=== PATIENT | female | born 1990 | race Caucasian/White ===

== ENCOUNTER 2023-09-23 16:24 | Emergency (ER) | payer MEDICAID, SELFPAY ==
[2023-09-23 16:25] VITALS: BP 123/78; PULSE 92; RESP 18; TEMP 36.7; O2SAT 98; BMI 36.8
--- NOTE | 2023-09-23 17:06 | HMH.EDGENADL ---
Discharge Plan Disposition Patient Disposition: Home, Self-Care Condition: Good Prescriptions Prescriptions: New doxycycline hyclate 100 mg capsule 100 mg PO BID 10 Days Qty: 20 0RF Referrals Follow up/Referrals: Kelly Warner APRN [Primary Care Provider] - See instructions Activity Restrictions/Add. Instructions Additional Instructions/Restrictions: Leave packing in place for 24 hours. Change packing once a day. May wash with soap and water. Follow-up with PCP for reevaluation or may return to ER. Take antibiotics as prescribed. Clinical Impressions Clinical Impression: Abscess of skin or subcutaneous tissue Qualifiers: Site of cutaneous abscess: extremity Site of cutaneous abscess of extremity: lower extremity Laterality: left Qualified Code(s): L02.416 - Cutaneous abscess of left lower limb Instructions Patient Instructions: DI for Skin Abscess Discharge ED Provider: Pooja Jo General Adult HPI General Chief complaint: Skin/Abscess/Foreign Body Stated complaint: spot on LT thigh, LT knee& thigh pain Time Seen by Provider: 09/23/23 17:06 Mode of Arrival: Ambulatory Source of Information: Patient Limitations: No Limitations Description of Symptoms (Recalled from ER Triage Doc. by RN): Patient reports abscess on left upper thigh redness and open area noted reports she noticed it 2 days ado. Patient states she has been having pain in left knee and hip for 1 day. Worse with ambulation. History of Present Illness HPI narrative: Patient reports an area on the proximal medial left inner thigh that has gotten red hot and swollen over the last 2 days. Patient denies trauma or picking. Patient knows fever chills hemoptysis hematochezia melena nausea vomit diarrhea. Related Data Previous Rx's Medication Instructions Recorded doxycycline hyclate 100 mg capsule 100 mg PO BID 10 days #20 caps 09/23/23 Allergies Allergy/AdvReac Type Severity Reaction Status Date / Time No Known Allergies Allergy Verified 09/23/23 18:08 [facility] Disclaimer: The information contained in this section may have been updated after the patient was seen, as this information can be updated by other users. Social History Smoking Status: Current every day smoker alcohol intake: current current occupational status: employed Travel in the last 8 weeks: None ROS Obtained: Yes Systems reviewed as appropriate & no additional complaints except as documented Physical Exam General General appearance: alert and in no apparent distress Respiratory Respiratory exam: Present normal lung sounds bilaterally Cardiovascular Cardiovascular exam: Present regular rate, normal rhythm, +S1 and +S2 Neurological Exam Neurological exam: Present alert and oriented X3 Other Other exam information: On the proximal medial left thigh distal to the inguinal crease, patient has a 2 cm area of induration with a central area of eschar and a large greater than 20 cm area erythema without fluctuance or induration. Borders have been marked by myself. No fluid can be expressed currently. Medical Decision Making Medical Records Medical records reviewed: Yes I reviewed the patient's medical records. [place] Inquiry Pt receiving controlled substance: No Vital Signs: 09/23/23 16:25 09/23/23 18:23 Temperature 98.0 F 98.2 F Temperature Source Oral Pulse Rate 85 Pulse Rate [Right] 92 H Respiratory Rate 18 16 Blood Pressure 120/75 Blood Pressure [Left Arm] 123/78 Blood Pressure Mean [Left Arm] 93 Blood Pressure Source [Left Arm] Automatic Cuff 02 Sat by Pulse Oximetry 98 Oxygen Delivery Method Room Air Room Air Orders (Tests/Meds): ED MEDICATIONS Generic Name Dose Route Start Last Admin Trade Name Freq PRN Reason Stop Dose Admin Lidocaine HCl 10 ml 09/23/23 18:59 Lidocaine 1% 10ml Mdv SQ 09/23/23 19:00 ONCE ONE ORDERS Category Date Time Status POCUS Point of Care (ER Only) Stat Exams 09/23/23 17:19 Ordered Medical Decision Narrative: In summary patient is a 33-year-old female who presents to the emergency department for evaluation of an abscess in her left lower extremity. Patient is hemodynamically stable upon arrival, febrile. Physical exam shows an indurated area with a collar of erythema in the proximal medial thigh with central area of eschar approximately 1 cm in diameter.. Differential diagnosis includes abscess versus cellulitis. Initial interventions include incision and drainage with packing placement. Patient discharged home with a prescription for antibiotics. Patient given instructions on packing change and wound care. Patient follow-up with PCP return to ER as needed. Procedures Abscess I/D Site: lower extremity Side (if applicable): left Local Anesthetic: lidocaine 1% Amount of anesthesia used (mL): 10 Technique: incised with #11 blade Amount of fluid expressed (mL): 3 Irrigation: Yes Packing used?: plain Critical Care Critical Care Time Critical Care Time: No
[2023-09-23 18:23] VITALS: BP 120/75; PULSE 85; RESP 16; TEMP 36.8; O2SAT 98
== END 2023-09-23 18:31 | disposition home or self-care (01) ==
PROVIDERS: Emergency Provider Student in an Organized Health Care Education/Training Program; PCP Nurse Practitioner Family
DX: L02.416 Cutaneous abscess of left lower limb (principal); M25.562 Pain in left knee; M79.652 Pain in left thigh; F17.200 Nicotine dependence, unspecified, uncomplicated
CPT/HCPCS: 10060; 99284

== ENCOUNTER 2023-09-25 14:46 | Inpatient (IN) | payer MEDICAID, SELFPAY ==
[2023-09-25 14:48] VITALS: BP 139/88; PULSE 79; RESP 16; TEMP 36.8; O2SAT 100; BMI 37.7
--- NOTE | 2023-09-25 15:24 | ED_ITS ---
Discharge Plan Disposition Patient Disposition: Admitted Clinical Impressions Clinical Impression: Cellulitis Discharge ED Provider: Carline Stanley Adult HPI General Chief complaint: Skin/Abscess/Foreign Body Stated complaint: possible abscess on left leg, swollen and painful Time Seen by Provider: 09/25/23 15:18 Mode of Arrival: Ambulatory Source of Information: Patient Limitations: No Limitations Description of Symptoms (Recalled from ER Triage Doc. by RN): pt presents to ED with c/o abcess on left inner thigh. pt reports she was seen by pcp 2 days ago, and given suplies to pack wound, but pt is unable to do that at home. and pt reports the size has doubled in 2 days. pt is taking doxy History of Present Illness HPI narrative: 33-year-old female presents with concerns of abscess on left inner thigh. She was seen in our ED 2 days ago where abscess was drained and packed. Packing was changed yesterday morning by her PCP and by her yesterday evening the patient states the swelling and redness continued to worsen despite being on doxycycline. She states that she is also now having fevers, yesterday it was up to 102. Patient states the redness has expanded significantly and the hard part of the abscess is worsening as well. Related Data Previous Rx's Medication Instructions Recorded doxycycline hyclate 100 mg capsule 100 mg PO BID 10 days #20 caps 09/23/23 Allergies Allergy/AdvReac Type Severity Reaction Status Date / Time No Known Allergies Allergy Verified 09/23/23 18:08 [facility] Disclaimer: The information contained in this section may have been updated after the patient was seen, as this information can be updated by other users. Medical History (Updated 09/25/23 @ 17:31 by Emperatriz Dickens RN) Hepatitis C Surgical History (Updated 09/25/23 @ 17:33 by Emperatriz Dickens RN) History of tonsillectomy History of appendectomy History of section History of cholecystectomy Family History (Updated 09/25/23 @ 17:32 by Emperatriz Dickens RN) Father Lung cancer Mother Family history of stroke Social History (Updated 09/25/23 @ 17:33 by Emperatriz Dickens RN) Smoking Status: Current every day smoker alcohol intake: current current occupational status: employed Travel in the last 8 weeks: None ROS Obtained: Yes All systems reviewed & no additional complaints except as documented Constitutional Constitutional: Reports fever(s) Integumentary/Breasts Skin/Breast: Reports redness Comments: Swollen firm area Physical Exam General General appearance: alert and in no apparent distress Head Head exam: atraumatic and normocephalic Eye Eye exam: Present PERRL and EOMI ENT ENT exam: Present mucous membranes moist Neck Neck exam: Present normal inspection and full ROM Chest Chest inspection: Present symmetric chest wall rise Respiratory Respiratory exam: Absent respiratory distress or stridor Cardiovascular Cardiovascular exam: Present regular rate and normal rhythm Abdominal Exam Abdominal exam: Present soft; Absent distention or tenderness Extremities Exam Extremities exam: Present full ROM Neurological Exam Neurological exam: Present alert and oriented X3; Absent motor sensory deficit Psychiatric Psychiatric exam: Present normal affect and normal mood Skin Skin exam: Present warm, dry and other (Proximal medial left lower extremity with 10 cm area of erythema, 5 cm area of induration. Open wound with packing present. No fluctuance. Erythema does not extend into the labia) Medical Decision Making [place] Inquiry Pt receiving controlled substance: No Vital Signs: 09/25/23 14:48 09/25/23 15:25 09/25/23 17:15 Temperature 98.2 F 98.6 F Temperature Source Oral Oral Pulse Rate 80 80 Pulse Rate [Left Radial] 79 Respiratory Rate 16 18 Blood Pressure 139/92 H 141/99 H Blood Pressure [Right Arm] 139/88 Blood Pressure Mean [Right Arm] 105 Blood Pressure Source Automatic Cuff Blood Pressure Position Sitting 02 Sat by Pulse Oximetry 100 100 Oxygen Delivery Method Room Air Room Air Lab Data Lab Results 09/25/23 15:47: WBC 4.8, RBC 3.91 L, Hgb 11.6 L, Hct 36.1 L, MCV 92.1, MCH 29.7, MCHC 32.2, RDW 13.9, Plt Count 188, MPV 8.9, Neut % (Auto) 57.4, Lymph % (Auto) 33.2, Wake % (Auto) 6.7, Eos % (Auto) 2.3, Baso % (Auto) 0.5, Neut # (Auto) 2.8, Lymph # (Auto) 1.6, Wake # (Auto) 0.3, Eos # (Auto) 0.1, Baso # (Auto) 0.0, S odium 135 L, Potassium 3.8, Chloride 105, Carbon Dioxide 28, Anion Gap 5.8, BUN 21 H, Creatinine 0.70, Estimated Creat Clear 203, Estimated GFR 96, Est GFR ( Amer) 117, Glucose 93, Calcium 8.6, Total Bilirubin 0.7, AST 67 H, ALT 68, Alkaline Phosphatase 52, Total Protein 7.3, Albumin 4.1, Globulin 3.2, Albumin/Globulin Ratio 1.3 09/25/23 15:47 09/25/23 15:47 Orders (Tests/Meds): ED MEDICATIONS Generic Name Dose Route Start Last Admin Trade Name Freq PRN Reason Stop Dose Admin Heparin Sodium (Porcine) 5,000 unit 09/26/23 09:00 Heparin Sodium 5,000 Unit/Ml Vial SQ 10/26/23 08:59 [facility] Vancomycin/PEG/NADA/Lysine/Water 1.5 gm in 300 mls @ 150 mls/hr 09/26/23 06:00 Vancomycin 1.5gm/300ml (Peg) Premix IV 10/06/23 05:59 Q8H [facility] Ceftriaxone Sodium 1 gm/ 50 mls @ 100 mls/hr 09/26/23 15:00 Sodium Chloride IV 10/06/23 14:59 Q24H [facility] Miscellaneous 1 each 09/25/23 17:00 09/25/23 18:50 Vancomycin Consult Request NOTAPPLIC 10/25/23 16:59 1 each [facility] Administration Morphine Sulfate 1 mg 09/25/23 18:37 09/25/23 20:00 Morphine 2mg/Ml Syringe IV 10/25/23 18:36 1 mg Q4HP PRN Administration Severe Pain (7-10) Discontinued Medications Generic Name Dose Route Start Last Admin Trade Name Freq PRN Reason Stop Dose Admin Ceftriaxone Sodium 1 gm 09/25/23 15:26 09/25/23 16:23 Ceftriaxone 1gm Vial IM 09/25/23 15:27 Not Given ONCE ONE Heparin Sodium (Porcine) 5,000 unit 09/25/23 16:45 09/25/23 19:15 Heparin Sodium 5,000 Unit/Ml Vial SQ 10/25/23 16:44 5,000 unit Q8H [place] Administration Vancomycin HCl 2,000 mg/ 500 mls @ 250 mls/hr 09/25/23 15:45 09/25/23 19:11 Sodium Chloride IV 09/25/23 17:44 250 mls/hr ONCE ONE Administration Ceftriaxone Sodium 1 gm/ 50 mls @ 100 mls/hr 09/25/23 16:21 09/25/23 16:22 Sodium Chloride IV 09/25/23 16:50 100 mls/hr ONCE ONE Administration Ceftriaxone Sodium 1 gm/ 50 mls @ 100 mls/hr 09/25/23 17:00 09/25/23 18:57 Sodium Chloride IV 10/05/23 16:59 Not Given Q24H [facility] Lidocaine HCl 0 ml 09/25/23 15:26 09/25/23 21:22 Lidocaine 1% 5ml Pf Vial IM 09/25/23 15:27 Not Given ONCE ONE Miscellaneous 1 each 09/25/23 15:30 09/25/23 16:49 Vancomycin Consult Request NOTAPPLIC 10/25/23 15:29 1 each [facility] Administration ORDERS Category Date Time Status Basic Metabolic Panel AMLAB Lab 09/26/23 06:00 Ordered Basic Metabolic Panel AMLAB Lab 09/27/23 06:00 Ordered Basic Metabolic Panel AMLAB Lab 09/28/23 06:00 Ordered CBC w/Auto Diff [Complete Blood Count Auto Diff] Stat Lab 09/25/23 15:47 Completed CMP [Comprehensive Metabolic Panel] Stat Lab 09/25/23 15:47 Completed Complete Blood Count Auto Diff AMLAB Lab 09/26/23 06:00 Ordered Complete Blood Count Auto Diff AMLAB Lab 09/27/23 06:00 Ordered Complete Blood Count Auto Diff AMLAB Lab 09/28/23 06:00 Ordered Blood Culture Stat Micro 09/25/23 15:40 Received Medical Decision Narrative: In summary, this 33year old female presents to the emergency department today with left lower extremity redness, swelling, fevers in the setting of recent abscess drainage. On initial evaluation patient is hemodynamically stable, afebrile, erythema and induration on the left lower extremity near the groin as documented in physical exam. Differential diagnosis includes but is not limited to abscess, cellulitis, failure of outpatient antibiotics, I considered sepsis but patient does not meet SIRS criteria. Based on these concerns, I ordered basic labs, broad-spectrum antibiotics, blood cultures. Labs demonstrate no leukocytosis, mild anemia, sodium 135, potassium and chloride normal, good kidney function, mild elevation in AST, nonspecific, nonactionable. Patient received broad-spectrum antibiotics including vancomycin for coverage of MRSA as well as Rocephin due to the proximity to the perineum. I sylvie a border around the existing erythema and induration. At this time patient requires hospital admission for continued IV antibiotics and treatment of infection. She is amenable to this plan. I discussed this case with the hospitalist including patient's failure of outpatient treatment and ongoing symptoms. Dr. Villeda accepted the patient for admission. Critical Care Critical Care Time Critical Care Time: No
[2023-09-25 15:25] VITALS: BP 139/92; PULSE 80; O2SAT 100
[2023-09-25 15:59] LABS: Basophils % 0.5 % (0.1-2.0); Eosinophils # 0.1 K/mm3 (0.0-0.4); Eosinophils % 2.3 % (0.1-12.0); Hematocrit 36.1 % (37.0-47.0); Hemoglobin 11.6 g/dL (12.2-16.2); Lymphocytes # 1.6 K/mm3 (0.7-4.5); Lymphocytes % 33.2 % (10-50); Mean Corpuscular HGB Conc 32.2 g/dL (31.8-35.4); Mean Corpuscular Hemoglobin 29.7 pg (27.0-31.2); Mean Corpuscular Volume 92.1 fl (81-99); Mean Platelet Volume 8.9 fl (7.4-10.4); Monocytes # 0.3 K/mm3 (0.1-1.0); Monocytes % 6.7 % (1.7-9.3); Neutrophils # 2.8 K/mm3 (1.8-7.8); Neutrophils % 57.4 % (37.0-80.0); Platelet Count 188 K/mm3 (142-424); Red Blood Count 3.91 M/mm3 (4.20-5.40); Red Cell Distribution Width 13.9 % (11.5-17.5); White Blood Count 4.8 K/mm3 (4.8-10.8)
[2023-09-25 16:12] LABS: Chloride 105 mmol/L (98-107); Potassium 3.8 mmoL/L (3.5-5.1); Sodium 135 mmol/L (136-145)
[2023-09-25 16:15] LABS: Alanine Aminotransferase 68 U/L (12-78); Albumin Level 4.1 g/dl (3.5-5.0); Albumin/Globulin Ratio 1.3 (1.1-1.8); Alkaline Phosphatase 52 U/L (38-126); Anion Gap 5.8 mEq/L (5-15); Aspartate Amino Transferase 67 U/L (14-36); Bilirubin,Total 0.7 mg/dl (0.2-1.3); Blood Urea Nitrogen 21 mg/dl (7-17); Carbon Dioxide 28 mmol/L (22.0-30.0); Creatinine Clearance Estimated 203 mL/min (50-200); Estimated Glomerular Filt Rate 96 ml/min (>60); GFR (African American) 117 ML/MIN (>60); Globulin 3.2 g/dL (1.3-3.2); Total Protein,Serum 7.3 g/dl (6.3-8.2)
[2023-09-25 16:16] LABS: Calcium 8.6 mg/dl (8.4-10.2); Glucose 93 mg/dl (74-100)
[2023-09-25] MEDS: CEFTRIAXONE 1 GM 1 GM in 0.9 % SODIUM CHLORIDE 50 ML IV (16:22)
--- NOTE | 2023-09-25 16:47 | PC.NURSE ---
Admissions notified of admit to room 210 for Cellulitis to . OBS.
[2023-09-25] MEDS: VANCOMYCIN CONSULT REQUEST 1 EACH NOTAPPLIC ×2 (16:49→18:50)
--- NOTE | 2023-09-25 16:56 | PC.NURSE ---
Report given to LEILA Cunningham on Med Surg.
[2023-09-25 17:15] VITALS: BP 141/99; PULSE 80; RESP 18; TEMP 37; O2SAT 96
[2023-09-25 17:17] VITALS: BP 141/99
--- NOTE | 2023-09-25 17:19 | PC.NURSE ---
arrived by w/c from ED
--- NOTE | 2023-09-25 17:23 | PC.NURSE ---
pt states that she has a liver ultrasound on Wednesday at 8:00 in [place], she has reiterated the importance of her making it to this appointment
--- NOTE | 2023-09-25 17:33 | PC.NURSE ---
received report from ED
--- NOTE | 2023-09-25 18:05 | P.HP_ITS ---
History of Present Illness *Admission Date: 09/25/23 *Reason for visit:: Skin infection *History of present illness: Patient is a 33-year-old female who presents to the hospital due to left lower extremity abscess on the medial aspect of the left thigh. According to patient she presented to the hospital around 2 days ago, she had incision and drainage performed in the emergency department and was discharged on oral antibiotics however for the past 2 days her redness has gotten worse and she is being feeling more pain at the site so she decided to come back to the hospital. Patient mentions she was discharged on oral doxycycline. Patient also mentions she had fever otherwise denied chest pain shortness of breath nausea vomiting diarrhea constipation dysuria. [facility] Disclaimer: The information contained in this section may have been updated after the patient was seen, as this information can be updated by other users. Medical History (Updated 09/26/23 @ 09:47 by Julio Weber MD) Hepatitis C Surgical History (Updated 09/25/23 @ 17:33 by Emperatriz Dickens RN) History of tonsillectomy History of appendectomy History of section History of cholecystectomy Family History (Updated 09/25/23 @ 17:32 by Emperatriz Dickens RN) Father Lung cancer Mother Family history of stroke Social History (Updated 09/25/23 @ 17:33 by Emperatriz Dickens, LEILA) Smoking Status: Current every day smoker alcohol intake: current current occupational status: employed Travel in the last 8 weeks: None Review of Systems Review of Systems Review of systems (narrative): as per HPI Meds Home Medications and Allergies Home Medications Medication Instructions Recorded Confirmed Type doxycycline hyclate 100 mg capsule 100 mg PO BID Infection 09/26/23 09/26/23 History New Prescriptions to Start Prescriptions: Allergies Allergy/AdvReac Type Severity Reaction Status Date / Time No Known Allergies Allergy Verified 09/23/23 18:08 Exam Data for Last 24 hours Vital signs and Labs for Last 24 Hours: Temp Pulse Resp BP Pulse Ox O2 Del Method 98.6 F 80 18 141/99 H 100 Room Air 09/25/23 17:15 09/25/23 17:15 09/25/23 17:15 09/25/23 17:17 09/25/23 15:25 09/25/23 17:15 Laboratory Results - last 24 hr 09/25/23 15:47: WBC 4.8, RBC 3.91 L, Hgb 11.6 L, Hct 36.1 L, MCV 92.1, MCH 29.7, MCHC 32.2, RDW 13.9, Plt Count 188, MPV 8.9, Neut % (Auto) 57.4, Lymph % (Auto) 33.2, Smyth % (Auto) 6.7, Eos % (Auto) 2.3, Baso % (Auto) 0.5, Neut # (Auto) 2.8, Lymph # (Auto) 1.6, Smyth # (Auto) 0.3, Eos # (Auto) 0.1, Baso # (Auto) 0.0, Sodium 135 L, Potassium 3.8, Chloride 105, Carbon Dioxide 28, Anion Gap 5.8, BUN 21 H, Creatinine 0.70, Estimated Creat Clear 203, Estimated GFR 96, Est GFR ( Amer) 117, Glucose 93, Calcium 8.6, Total Bilirubin 0.7, AST 67 H, ALT 68, Alkaline Phosphatase 52, Total Protein 7.3, Albumin 4.1, Globulin 3.2, Albumin/Globulin Ratio 1.3 I & O for Last 24 hours: Intake & Output 09/22/23 09/23/23 09/24/23 09/25/23 23:59 23:59 23:59 23:59 Weight 112.491 kg Constitutional Constitutional: no acute distress *Routine HEENT Exam Head: Present normocephalic Eye: Present EOMI and PERRL ENT: Present mucous membranes moist *Routine Neck Exam Neck: Present supple; Absent lymphadenopathy *Routine Respiratory Exam Respiratory: Present CTA bilaterally *Routine Cardiovascular Exam Cardiovascular: Present RRR *Routine Abdominal Exam Abdominal: Present soft and normoactive bowel sounds; Absent tenderness *Routine Rectal Exam Rectal:: deferred *Routine Genitalia Exam Genitalia:: deferred *Routine Extremities Exam Extremities: Absent cyanosis, clubbing or edema Comments: left inner thigh appear red and swollen from visual examination, patient showed it herself before asked her for physical exam *Routine Skin Exam Skin: Present warm; Absent rash *Routine Neurological Exam Neurological: Present alert and oriented X3 Assessment and Plan *Assessment and plan (1) Cellulitis: Status: Acute Category: Medical Code(s): L03.90 - Cellulitis, unspecified (2) Abscess of skin or subcutaneous tissue: Status: Acute Qualifiers: Laterality: left Site of cutaneous abscess: extremity Site of cutaneous abscess of extremity: lower extremity Qualified Code(s): L02.416 - Cutaneous abscess of left lower limb Category: Medical Code(s): L02.91 - Cutaneous abscess, unspecified Plan Patient is a 33-year-old female who presents to the hospital due to left lower extremity abscess on the medial aspect of the left thigh. According to patient she presented to the hospital around 2 days ago, she had incision and drainage performed in the emergency department and was discharged on oral antibiotics however for the past 2 days her redness has gotten worse and she is being feeling more pain at the site so she decided to come back to the hospital. Patient mentions she was discharged on oral doxycycline. Patient also mentions she had fever otherwise denied chest pain shortness of breath nausea vomiting diarrhea constipation dysuria. Assessment and plan Left lower extremity cellulitis Skin abscess Start IV Rocephin, IV vancomycin Consult general surgery for possible incision and drainage N.p.o. after midnight Pain control General floor therapy Check blood cultures Consult wound care DVT prophylaxis-Lovenox
[2023-09-25 18:12] VITALS: BP 139/92; PULSE 80; RESP 18; TEMP 36.8; O2SAT 100; BMI 36.9
[2023-09-25] MEDS: VANCOMYCIN HCL 2,000 MG in 0.9 % SODIUM CHLORIDE 500 ML 250 MG IV (19:11)
[2023-09-25] MEDS: HEPARIN SODIUM 5,000 UNIT/ML VIAL 5000 UNIT SQ (19:15)
[2023-09-25 20:00] VITALS: BP 151/91; PULSE 80; RESP 16; TEMP 37; O2SAT 97
[2023-09-25] MEDS: MORPHINE 2MG/ML SYRINGE 1 MG IV (20:00)
[2023-09-26 04:00] VITALS: BP 141/70; PULSE 75; RESP 17; TEMP 37; O2SAT 99; BMI 38.2
--- NOTE | 2023-09-26 04:28 | PC.NURSE ---
Pt is alert and oriented. Pt has complained of pain 1 time, treated per sep. This Rn helped pt pack wound to left thigh from recent I&D. Pt has had no other complaints through the shift. Independent in the room. NPO since midnight. Call light in reach.
[2023-09-26] MEDS: VANCOMYCIN/WATER FOR INJ (PEG) 1.5 GM/300 ML PIGGYBACK IV ×3 (06:14→22:05)
--- NOTE | 2023-09-26 07:19 | PC.NURSE ---
Dr. Weber notified of general surgery consult.
[2023-09-26 07:28] LABS: Basophils % 0.9 % (0.1-2.0); Eosinophils # 0.1 K/mm3 (0.0-0.4); Eosinophils % 3.3 % (0.1-12.0); Hematocrit 35.7 % (37.0-47.0); Hemoglobin 11.7 g/dL (12.2-16.2); Lymphocytes # 1.4 K/mm3 (0.7-4.5); Lymphocytes % 35.6 % (10-50); Mean Corpuscular HGB Conc 32.7 g/dL (31.8-35.4); Mean Corpuscular Hemoglobin 30.2 pg (27.0-31.2); Mean Corpuscular Volume 92.6 fl (81-99); Monocytes # 0.3 K/mm3 (0.1-1.0); Monocytes % 8.1 % (1.7-9.3); Neutrophils # 2.1 K/mm3 (1.8-7.8); Neutrophils % 52.1 % (37.0-80.0); Platelet Count 197 K/mm3 (142-424); Red Blood Count 3.86 M/mm3 (4.20-5.40); Red Cell Distribution Width 14.1 % (11.5-17.5); White Blood Count 4.1 K/mm3 (4.8-10.8)
[2023-09-26 07:40] LABS: Blood Urea Nitrogen 13 mg/dl (7-17); Calcium 8.2 mg/dl (8.4-10.2); Carbon Dioxide 25 mmol/L (22.0-30.0); Chloride 106 mmol/L (98-107); Creatinine Clearance Estimated 247 mL/min (50-200); Estimated Glomerular Filt Rate 115 ml/min (>60); GFR (African American) 139 ML/MIN (>60); Glucose 89 mg/dl (74-100); Sodium 137 mmol/L (136-145)
[2023-09-26 08:00] VITALS: BP 128/71; PULSE 67; RESP 17; TEMP 36.7; O2SAT 98; O2SAT 99
--- NOTE | 2023-09-26 08:47 | EXP.PHA.CONS ---
Pharmacy Consult Date: 09/26/23 Time: 08:47 Referring provider: DR. LIANG Reason for Consult:: VANCOMYCIN DOSING Allergies Allergy/AdvReac Type Severity Reaction Status Date / Time No Known Allergies Allergy Verified 09/23/23 18:08 Home Medications Medication Instructions Recorded Confirmed Type doxycycline hyclate 100 mg capsule 100 mg PO BID 10 days #20 caps 09/23/23 09/25/23 Rx New Prescriptions to Start Prescriptions: Height: 1.75 m Weight: 117.208 kg Laboratory Results:: Laboratory Results - last 24 hr 09/25/23 15:47: WBC 4.8, RBC 3.91 L, Hgb 11.6 L, Hct 36.1 L, MCV 92.1, MCH 29.7, MCHC 32.2, RDW 13.9, Plt Count 188, MPV 8.9, Neut % (Auto) 57.4, Lymph % (Auto) 33.2, Swisher % (Auto) 6.7, Eos % (Auto) 2.3, Baso % (Auto) 0.5, Neut # (Auto) 2.8, Lymph # (Auto) 1.6, Swisher # (Auto) 0.3, Eos # (Auto) 0.1, Baso # (Auto) 0.0, Sodium 135 L, Potassium 3.8, Chloride 105, Carbon Dioxide 28, Anion Gap 5.8, BUN 21 H, Creatinine 0.70, Estimated Creat Clear 203, Estimated GFR 96, Est GFR ( Amer) 117, Glucose 93, Calcium 8.6, Total Bilirubin 0.7, AST 67 H, ALT 68, Alkaline Phosphatase 52, Total Protein 7.3, Albumin 4.1, Globulin 3.2, Albumin/Globulin Ratio 1.3 09/26/23 06:56: WBC 4.1 L, RBC 3.86 L, Hgb 11.7 L, Hct 35.7 L, MCV 92.6, MCH 30.2, MCHC 32.7, RDW 14.1, Plt Count 197, MPV 9.0, Neut % (Auto) 52.1, Lymph % (Auto) 35.6, Swisher % (Auto) 8.1, Eos % (Auto) 3.3, Baso % (Auto) 0.9, Neut # (Auto) 2.1, Lymph # (Auto) 1.4, Swisher # (Auto) 0.3, Eos # (Auto) 0.1, Baso # (Auto) 0.0, Sodium 137, Potassium 4.0, Chloride 106, Carbon Dioxide 25, Anion Gap 10.0, BUN 13 D, Creatinine 0.60, Estimated Creat Clear 247, Estimated GFR 115, Est GFR ( Amer) 139, Glucose 89, Calcium 8.2 L Medical History: Medical History (Updated 09/25/23 @ 17:31 by Emperatriz Dickens RN) Hepatitis C Assessment and Plan Assessment and plan all Dx Assessment and Plan for all problems:: Pharmacokinetic dosing service Objective: Patient: Floor: Age: 33 yo Serum creatinine: 0.60 mg/dL Height: 68.9 Inches Weight (kg): 117.2 Assessment: IBW (kg): 65.97 Dosing wt(kg): 117.2 Estimated Creatinine clearance (ml/min): 130 Clearance limited to 130 ml/min to reduce risk of overdosing. CRCL method: Cockcroft and Gault using ibw(default). Drug selected: Vancomycin Loading dose (mg): Vd (liters): 93.8 (factor used: 0.8 L/kg) Zak (hr-1): 0.112 Half life (hrs): 6.19 CLvanco=?? 10.506 L/hr Recommended dose: 1750 mg Interval: 8 hrs Infusion time (hrs): 2.0 Predicted peak (mcg/mL): 28.2 Predicted trough (mcg/mL): 14.40 Total body weight is being used for vancomycin dosing. Recommendations: Give Vancomycin 1750 mg q 8 hrs with an expected Cpeak of 28.2 mcg/ml and an expected Ctrough of 14.40 mcg/ml AUC 0-24 /NGUYEN Data: NGUYEN 0.5 mcg/mL:?? AUC/NGUYEN:? 999.4 NGUYEN 1.0 mcg/mL:?? AUC/NGUYEN:? 499.7 --------- NGUYEN 1.5 mcg/mL:?? AUC/NGUYEN:? 333.1 NGUYEN 2.0 mcg/mL:?? AUC/NGUYEN:? 249.9 Thank you for the consult, will continue to follow. -KEN DISLA, ODALYSD
--- NOTE | 2023-09-26 08:49 | HMH.PHAINT1 ---
Pharmacy Intervention Comments: MEDICATION RECONCILIATION COMPLETED ON PATIENT USING EXTERNAL FILL HISTORY FROM PHARMACY. -KEN DISLA, ODALYSD
--- NOTE | 2023-09-26 09:45 | EXP.SURG.CON ---
History of Present Illness *Admission Date: 09/25/23 *Reason for visit:: Left groin/thigh abscess *History of present illness: This is a 33-year-old female seen in consultation from the primary service for evaluation regarding left groin/thigh abscess. Please see HPI forwarded from emergency department evaluation below. The patient reports slight decrease in redness overnight. No fevers. Forwarded from emergency department evaluation: 33-year-old female presents with concerns of abscess on left inner thigh. She was seen in our ED 2 days ago where abscess was drained and packed. Packing was changed yesterday morning by her PCP and by her yesterday evening the patient states the swelling and redness continued to worsen despite being on doxycycline. She states that she is also now having fevers, yesterday it was up to 102. Patient states the redness has expanded significantly and the hard part of the abscess is worsening as well. [facility] Disclaimer: The information contained in this section may have been updated after the patient was seen, as this information can be updated by other users. Medical History (Updated 09/26/23 @ 09:47 by Julio Weber MD) Hepatitis C Surgical History (Updated 09/25/23 @ 17:33 by Emperatriz Dickens RN) History of tonsillectomy History of appendectomy History of section History of cholecystectomy Family History (Updated 09/25/23 @ 17:32 by Emperatriz Dickens RN) Family history of stroke Mother Lung cancer Father Social History (Updated 09/25/23 @ 17:33 by Emperatriz Dickens RN) Smoking Status: Current every day smoker alcohol intake: current current occupational status: employed Travel in the last 8 weeks: None Meds Home Medications and Allergies Home Medications Medication Instructions Recorded Confirmed Type doxycycline hyclate 100 mg capsule 100 mg PO BID Infection 09/26/23 09/26/23 History New Prescriptions to Start Prescriptions: Allergies Allergy/AdvReac Type Severity Reaction Status Date / Time No Known Allergies Allergy Verified 09/23/23 18:08 Exam (Inpt) Vital signs and Labs for Last 24 Hours: Temp Pulse Resp BP Pulse Ox O2 Del Method 98.0 F 67 17 128/71 98 Room Air 09/26/23 08:00 09/26/23 08:00 09/26/23 08:00 09/26/23 08:00 09/26/23 08:00 09/26/23 08:26 Laboratory Results - last 24 hr 09/25/23 15:47: WBC 4.8, RBC 3.91 L, Hgb 11.6 L, Hct 36.1 L, MCV 92.1, MCH 29.7, MCHC 32.2, RDW 13.9, Plt Count 188, MPV 8.9, Neut % (Auto) 57.4, Lymph % (Auto) 33.2, [place] % (Auto) 6.7, Eos % (Auto) 2.3, Baso % (Auto) 0.5, Neut # (Auto) 2.8, Lymph # (Auto) 1.6, [place] # (Auto) 0.3, Eos # (Auto) 0.1, Baso # (Auto) 0.0, Sodium 135 L, Potassium 3.8, Chloride 105, Carbon Dioxide 28, Anion Gap 5.8, BUN 21 H, Creatinine 0.70, Estimated Creat Clear 203, Estimated GFR 96, Est GFR ( Amer) 117, Glucose 93, Calcium 8.6, Total Bilirubin 0.7, AST 67 H, ALT 68, Alkaline Phosphatase 52, Total Protein 7.3, Albumin 4.1, Globulin 3.2, Albumin/Globulin Ratio 1.3 09/26/23 06:56: WBC 4.1 L, RBC 3.86 L, Hgb 11.7 L, Hct 35.7 L, MCV 92.6, MCH 30.2, MCHC 32.7, RDW 14.1, Plt Count 197, MPV 9.0, Neut % (Auto) 52.1, Lymph % (Auto) 35.6, [place] % (Auto) 8.1, Eos % (Auto) 3.3, Baso % (Auto) 0.9, Neut # (Auto) 2.1, Lymph # (Auto) 1.4, [place] # (Auto) 0.3, Eos # (Auto) 0.1, Baso # (Auto) 0.0, Sodium 137, Potassium 4.0, Chloride 106, Carbon Dioxide 25, Anion Gap 10.0, BUN 13 D, Creatinine 0.60, Estimated Creat Clear 247, Estimated GFR 115, Est GFR ( Amer) 139, Glucose 89, Calcium 8.2 L I & O for Labs for Last 24 Hours: Intake & Output 09/23/23 09/24/23 09/25/23 09/26/23 11:59 11:59 11:59 11:59 Intake Total 500 / 500 Output Total 0 / 0 Balance 500 / 500 Weight 258 lb 6.4 oz Constitutional: no acute distress Respiratory: Absent respiratory distress Cardiac: Absent Tachycardia Comment:: Left groin/thigh abscess with erythematous blush and 3 cm of underlying induration. Results Labs 09/26/23 06:56 09/26/23 06:56 Labs: Laboratory Results - last 24 hr 09/25/23 15:47: WBC 4.8, RBC 3.91 L, Hgb 11.6 L, Hct 36.1 L, MCV 92.1, MCH 29.7, MCHC 32.2, RDW 13.9, Plt Count 188, MPV 8.9, Neut % (Auto) 57.4, Lymph % (Auto) 33.2, [place] % (Auto) 6.7, Eos % (Auto) 2.3, Baso % (Auto) 0.5, Neut # (Auto) 2.8, Lymph # (Auto) 1.6, [place] # (Auto) 0.3, Eos # (Auto) 0.1, Baso # (Auto) 0.0, Sodium 135 L, Potassium 3.8, Chloride 105, Carbon Dioxide 28, Anion Gap 5.8, BUN 21 H, Creatinine 0.70, Estimated Creat Clear 203, Estimated GFR 96, Est GFR ( Amer) 117, Glucose 93, Calcium 8.6, Total Bilirubin 0.7, AST 67 H, ALT 68, Alkaline Phosphatase 52, Total Protein 7.3, Albumin 4.1, Globulin 3.2, Albumin/Globulin Ratio 1.3 09/26/23 06:56: WBC 4.1 L, RBC 3.86 L, Hgb 11.7 L, Hct 35.7 L, MCV 92.6, MCH 30.2, MCHC 32.7, RDW 14.1, Plt Count 197, MPV 9.0, Neut % (Auto) 52.1, Lymph % (Auto) 35.6, [place] % (Auto) 8.1, Eos % (Auto) 3.3, Baso % (Auto) 0.9, Neut # (Auto) 2.1, Lymph # (Auto) 1.4, [place] # (Auto) 0.3, Eos # (Auto) 0.1, Baso # (Auto) 0.0, Sodium 137, Potassium 4.0, Chloride 106, Carbon Dioxide 25, Anion Gap 10.0, BUN 13 D, Creatinine 0.60, Estimated Creat Clear 247, Estimated GFR 115, Est GFR ( Amer) 139, Glucose 89, Calcium 8.2 L Assessment and Plan *Assessment and plan (1) Abscess of skin or subcutaneous tissue: Status: Acute Qualifiers: Laterality: left Site of cutaneous abscess: extremity Site of cutaneous abscess of extremity: lower extremity Qualified Code(s): L02.416 - Cutaneous abscess of left lower limb Category: Medical Code(s): L02.91 - Cutaneous abscess, unspecified (2) Cellulitis: Status: Acute Qualifiers: Site of cellulitis of extremity: lower extremity Laterality: left Site of cellulitis: extremity Qualified Code(s): L03.116 - Cellulitis of left lower limb Category: Medical Code(s): L03.90 - Cellulitis, unspecified Plan The patient has shown slight improvement with current antibiotic therapy. She wishes to continue antibiotics with possible incision and drainage in the morning. She understands the risks and benefits of operative and nonoperative management. She understands that she will most likely benefit from incision and drainage but prefers to allow additional time for the antibiotics to take effect and to minimize the overall size of the operative wound. She is tentatively being scheduled for incision or drainage early tomorrow morning.
[2023-09-26] MEDS: HEPARIN SODIUM 5,000 UNIT/ML VIAL 5000 UNIT SQ ×2 (09:46→16:15)
[2023-09-26] MEDS: MORPHINE 2MG/ML SYRINGE 1 MG IV (10:16)
--- NOTE | 2023-09-26 13:18 | EXP.PN ---
Subjective *Date: 09/26/23 *Time: 13:18 Interval history: patient was seen and evaluated at the bedside. No reported acute events overnight, denies chest pain, shortness of breath, nausea, vomiting, abdominal pain. Exam Data for Last 24 hours Vital signs and Labs for Last 24 Hours: Temp Pulse Resp BP Pulse Ox O2 Del Method 98.0 F 67 17 128/71 99 Room Air 09/26/23 08:00 09/26/23 08:00 09/26/23 08:00 09/26/23 08:00 09/26/23 08:00 09/26/23 08:26 Laboratory Results - last 24 hr 09/25/23 15:47: WBC 4.8, RBC 3.91 L, Hgb 11.6 L, Hct 36.1 L, MCV 92.1, MCH 29.7, MCHC 32.2, RDW 13.9, Plt Count 188, MPV 8.9, Neut % (Auto) 57.4, Lymph % (Auto) 33.2, [place] % (Auto) 6.7, Eos % (Auto) 2.3, Baso % (Auto) 0.5, Neut # (Auto) 2.8, Lymph # (Auto) 1.6, [place] # (Auto) 0.3, Eos # (Auto) 0.1, Baso # (Auto) 0.0, Sodium 135 L, Potassium 3.8, Chloride 105, Carbon Dioxide 28, Anion Gap 5.8, BUN 21 H, Creatinine 0.70, Estimated Creat Clear 203, Estimated GFR 96, Est GFR ( Amer) 117, Glucose 93, Calcium 8.6, Total Bilirubin 0.7, AST 67 H, ALT 68, Alkaline Phosphatase 52, Total Protein 7.3, Albumin 4.1, Globulin 3.2, Albumin/Globulin Ratio 1.3 09/26/23 06:56: WBC 4.1 L, RBC 3.86 L, Hgb 11.7 L, Hct 35.7 L, MCV 92.6, MCH 30.2, MCHC 32.7, RDW 14.1, Plt Count 197, MPV 9.0, Neut % (Auto) 52.1, Lymph % (Auto) 35.6, [place] % (Auto) 8.1, Eos % (Auto) 3.3, Baso % (Auto) 0.9, Neut # (Auto) 2.1, Lymph # (Auto) 1.4, [place] # (Auto) 0.3, Eos # (Auto) 0.1, Baso # (Auto) 0.0, Sodium 137, Potassium 4.0, Chloride 106, Carbon Dioxide 25, Anion Gap 10.0, BUN 13 D, Creatinine 0.60, Estimated Creat Clear 247, Estimated GFR 115, Est GFR ( Amer) 139, Glucose 89, Calcium 8.2 L I & O for Last 24 hours: Intake & Output 09/23/23 09/24/23 09/25/23 09/26/23 23:59 23:59 23:59 23:59 Intake Total 740 / 740 Output Total 0 / 0 Balance 740 / 740 Weight 113.568 kg 117.208 kg Constitutional Constitutional: no acute distress *Routine HEENT Exam Head: Present normocephalic Eye: Present EOMI and PERRL ENT: Present mucous membranes moist *Routine Neck Exam Neck: Present supple; Absent lymphadenopathy *Routine Respiratory Exam Respiratory: Present CTA bilaterally *Routine Cardiovascular Exam Cardiovascular: Present RRR *Routine Abdominal Exam Abdominal: Present soft and normoactive bowel sounds; Absent tenderness *Routine Extremities Exam Extremities: Absent cyanosis, clubbing or edema Comments: redness on LLE is improving *Routine Skin Exam Skin: Present warm; Absent rash *Routine Neurological Exam Neurological: Present alert and oriented X3 Assessment and Plan *Assessment and plan (1) Cellulitis: Status: Acute Qualifiers: Site of cellulitis: extremity Site of cellulitis of extremity: lower extremity Laterality: left Qualified Code(s): L03.116 - Cellulitis of left lower limb Category: Medical Code(s): L03.90 - Cellulitis, unspecified (2) Abscess of skin or subcutaneous tissue: Status: Acute Qualifiers: Laterality: left Site of cutaneous abscess: extremity Site of cutaneous abscess of extremity: lower extremity Qualified Code(s): L02.416 - Cutaneous abscess of left lower limb Category: Medical Code(s): L02.91 - Cutaneous abscess, unspecified Plan Patient is a 33-year-old female who presents to the hospital due to left lower extremity abscess on the medial aspect of the left thigh. According to patient she presented to the hospital around 2 days ago, she had incision and drainage performed in the emergency department and was discharged on oral antibiotics however for the past 2 days her redness has gotten worse and she is being feeling more pain at the site so she decided to come back to the hospital. Patient mentions she was discharged on oral doxycycline. Patient also mentions she had fever otherwise denied chest pain shortness of breath nausea vomiting diarrhea constipation dysuria. Assessment and plan Left lower extremity cellulitis Skin abscess Start IV Rocephin, IV vancomycin Consult general surgery for possible incision and drainage N.p.o. after midnight Pain control General floor therapy Check blood cultures Consult wound care DVT prophylaxis-Lovenox plan for possible I&D tomorrow by GS, continue IV Abx
[2023-09-26 15:37] VITALS: BP 100/69; PULSE 77; RESP 18; TEMP 36.8; O2SAT 98
[2023-09-26] MEDS: CEFTRIAXONE 1 GM 1 GM in 0.9 % SODIUM CHLORIDE 50 ML IV (16:14)
[2023-09-26 20:00] VITALS: BP 136/70; PULSE 94; RESP 16; TEMP 36.7; O2SAT 92
[2023-09-27] VITALS (22 sets, daily range): BP systolic 100–139; BP diastolic 54–98; PULSE 58–93; RESP 16–24; TEMP 36.2–37; O2SAT 95–99; BMI 36.3
[2023-09-27] MEDS: HEPARIN SODIUM 5,000 UNIT/ML VIAL 5000 UNIT SQ ×3 (00:06→17:35)
--- NOTE | 2023-09-27 05:09 | PC.NURSE ---
Alert and oriented. Pt has had no complaints this shift. IV changed. Pt independent in the room. Showered. Surgery consent signed. Pt has rested throughout the night. Receiving IV abx. Call light in reach.
[2023-09-27 05:45] LABS: Urine Pregnancy, HCG Qual. Negative (Negative)
--- NOTE | 2023-09-27 05:59 | P.PN_ITS ---
Subjective Patient reports: no new complaints Exam Data for Last 24 hours Vital signs and Labs for Last 24 Hours: Temp Pulse Resp BP Pulse Ox O2 Del Method 98 F 72 16 113/69 96 Room Air 09/27/23 04:00 09/27/23 04:00 09/27/23 04:00 09/27/23 04:00 09/27/23 04:00 09/27/23 05:00 Laboratory Results - last 24 hr 09/26/23 06:56: WBC 4.1 L, RBC 3.86 L, Hgb 11.7 L, Hct 35.7 L, MCV 92.6, MCH 30.2, MCHC 32.7, RDW 14.1, Plt Count 197, MPV 9.0, Neut % (Auto) 52.1, Lymph % (Auto) 35.6, [place] % (Auto) 8.1, Eos % (Auto) 3.3, Baso % (Auto) 0.9, Neut # (Auto) 2.1, Lymph # (Auto) 1.4, [place] # (Auto) 0.3, Eos # (Auto) 0.1, Baso # (Auto) 0.0, Sodium 137, Potassium 4.0, Chloride 106, Carbon Dioxide 25, Anion Gap 10.0, BUN 13 D, Creatinine 0.60, Estimated Creat Clear 247, Estimated GFR 115, Est GFR ( Amer) 139, Glucose 89, Calcium 8.2 L 09/27/23 05:34: Urine HCG, Qual Negative I & O for Last 24 hours: Intake & Output 09/24/23 09/25/23 09/26/23 09/27/23 11:59 11:59 11:59 11:59 Intake Total 500 / 500 1080 / 1080 Output Total 0 / 0 0 / 0 Balance 500 / 500 1080 / 1080 Weight 258 lb 6.4 oz 245 lb 4.8 oz Constitutional Constitutional: no acute distress *Routine Respiratory Exam Respiratory: Absent respiratory distress *Routine Cardiovascular Exam Cardiovascular: Absent tachycardia *Routine Skin Exam Comments: Left groin/anterior thigh cellulitis slightly improved. Induration unchanged. Progress Note: A&P Assessment and plan (1) Abscess of skin or subcutaneous tissue: Status: Acute Assessment and plan: OR this AM for incision and drainage/debridement I have discussed the risks and benefits including, but not limited to: Bleeding Infection Damage to surrounding tissue Inherent risks of sedation The patient agrees to proceed. (2) Cellulitis: Status: Acute
--- NOTE | 2023-09-27 06:02 | PC.NURSE ---
Pt off floor with surgery.
[2023-09-27] MEDS: LIDOCAINE 1% 20ML MDV 20 ML (06:23)
--- NOTE | 2023-09-27 06:25 | EXP.ANES.CKL ---
[facility] Disclaimer: The information contained in this section may have been updated after the patient was seen, as this information can be updated by other users. Medical History (Updated 09/26/23 @ 09:47 by Julio Weber MD) Hepatitis C Surgical History (Updated 09/25/23 @ 17:33 by Emperatriz Dickens, RN) History of tonsillectomy History of appendectomy History of section History of cholecystectomy Family History (Updated 09/25/23 @ 17:32 by Emperatriz Dickens, LEILA) Father Lung cancer Mother Family history of stroke Social History (Updated 09/25/23 @ 17:33 by Emperatriz Dickens, LEILA) Smoking Status: Current every day smoker alcohol intake: current substance use type: denies use current occupational status: employed Travel in the last 8 weeks: None [facility] Anesthesia Checklist Patient Identification Patient Identification: Verbal (Name & ) Structural Data Admitted From: Inpatient Planned Operative Procedure/s: I/D groin abcess Consent for Planned Operative Procedure(s) Verified: Yes NPO Status Verified Time NPO: 00:00 Airway Assessment Mallampati Score:: Class II C-Spine Mobility Assessed: Yes TMJ Mobility Assessed: Yes Dentition: Good Dentition Neurological Assessment Level of Consciousness: Awake, Alert and Appropriate Anesthesia Plan Anesthesia Risk discussed: Yes Anesthesia Plan: Verified ASA Class: II Anesthesia Type: General
[2023-09-27 06:33] LABS: Eosinophils # 0.2 K/mm3 (0.0-0.4); Eosinophils % 6.7 % (0.1-12.0); Hemoglobin 11.9 g/dL (12.2-16.2); Lymphocytes # 1.5 K/mm3 (0.7-4.5); Lymphocytes % 40.6 % (10-50); Mean Corpuscular HGB Conc 32.1 g/dL (31.8-35.4); Mean Corpuscular Hemoglobin 29.6 pg (27.0-31.2); Mean Corpuscular Volume 92.2 fl (81-99); Mean Platelet Volume 8.7 fl (7.4-10.4); Monocytes # 0.3 K/mm3 (0.1-1.0); Monocytes % 7.2 % (1.7-9.3); Neutrophils # 1.6 K/mm3 (1.8-7.8); Neutrophils % 44.5 % (37.0-80.0); Platelet Count 208 K/mm3 (142-424); Red Blood Count 4.01 M/mm3 (4.20-5.40); White Blood Count 3.6 K/mm3 (4.8-10.8)
--- NOTE | 2023-09-27 06:36 | P.OP_ITS ---
Date of procedure: 09/27/23 Pre-op Diagnosis:: Left groin/anterior thigh abscess Post-op Diagnosis:: Same Procedure performed:: incision and drainage/debridement of left groin/anterior thigh abscess Surgeon:: Julio Weber MD Anesthesia: local and LMA Estimated blood loss (mL): 10 Operative findings:: Necrotic/indurated adipose throughout deep subcutaneous tissue to margin of fascia Operative note:: After informed consent was obtained the patient was taken to the operating room and maintained in the supine position. General anesthesia with laryngeal mask airway was achieved. Her left anterior thigh/groin region was prepped and drap ed in a sterile fashion. An elliptical incision was made to include the prior focal incision or drainage site. Firm/indurated/necrotic adipose tissue was excised and passed off for culture. The entirety of the necrotic tissue was approximately 5 x 4 cm. The necrotic tissue did not involve the fascia/musculature; however, it did encroach the fascial margin (deep subcutaneous tissue). The entirety of the necrotic tissue was excised with a combination of blunt dissection and electrocautery. Multiple microabscesses confirmed. An isolated pocket of purulence was not encountered. Electrocautery was utilized to achieve hemostasis. The wound was packed open with Kerlix. The entire region was infiltrated with 1% lidocaine. Dressings were applied and she was transferred to recovery in stable condition after removal of her laryngeal mask airway. Condition: stable Disposition: PACU Specimens:: Necrotic adipose tissue for culture only Complications:: No immediate
[2023-09-27 06:45] LABS: Blood Urea Nitrogen 16 mg/dl (7-17); Calcium 8.4 mg/dl (8.4-10.2); Carbon Dioxide 24 mmol/L (22.0-30.0); Chloride 107 mmol/L (98-107); Creatinine Clearance Estimated 234 mL/min (50-200); Estimated Glomerular Filt Rate 115 ml/min (>60); GFR (African American) 139 ML/MIN (>60); Glucose 100 mg/dl (74-100); Sodium 137 mmol/L (136-145)
[2023-09-27] MEDS: HYDROMORPHONE 2MG/ML SYRINGE 0.5 MG IV ×4 (06:52→07:11)
--- NOTE | 2023-09-27 06:54 | P.PNANES_ITS ---
[facility] Anesthesia Record Part I Anesthesia Record I Intake, IV Amount: 100 Hydration: Adequate Estimated blood loss (mL): 5 Urine output (mL): 0 Blood Products used (#): none Blood Pressure: 113/58 SaO2: 96 Pulse Rate: 69 Airway Patency: Patent Respiratory Rate: 24 Temperature: 97.2 F Patient is:: Drowsy and Stable Stable to PACU at:: 06:35
--- NOTE | 2023-09-27 07:30 | SUR.PHASEI ---
PT TAKEN TO ROOM 210 ON MED/SURG. PAAIN LEVEL DECREASED FORM 10 TO 4. VITALS REMAINED STABLE T/O PACU TIME. SURGICAL SITE DRESSING C/D/I. PAIN REASSESSMENT TIMES VERBALIZED TO Mame SAMUELS RN, VERBALIZED UNDERSTANDING.
[2023-09-27] MEDS: ONDANSETRON 4MG/2ML VIAL 4 MG IV ×2 (07:44→11:00)
--- NOTE | 2023-09-27 08:14 | P.CONPHA_ITS ---
Pharmacy Consult Date: 09/27/23 Time: 08:14 Referring provider: DR. LIANG Reason for Consult:: VANCOMYCIN TROUGH LEVEL Allergies Allergy/AdvReac Type Severity Reaction Status Date / Time No Known Allergies Allergy Verified 09/23/23 18:08 Home Medications Medication Instructions Recorded Confirmed Type doxycycline hyclate 100 mg capsule 100 mg PO BID Infection 09/26/23 09/26/23 H istory New Prescriptions to Start Prescriptions: Height: 1.75 m Weight: 111.266 kg Laboratory Results:: Laboratory Results - last 24 hr 09/27/23 05:34: Urine HCG, Qual Negative 09/27/23 05:36: WBC 3.6 L, RBC 4.01 L, Hgb 11.9 L, Hct 37.0, MCV 92.2, MCH 29.6, MCHC 32.1, RDW 14.0, Plt Count 208, MPV 8.7, Neut % (Auto) 44.5, Lymph % (Auto) 40.6, [place] % (Auto) 7.2, Eos % (Auto) 6.7, Baso % (Auto) 1.0, Neut # (Auto) 1.6 L, Lymph # (Auto) 1.5, [place] # (Auto) 0.3, Eos # (Auto) 0.2, Baso # (Auto) 0.0, Sodium 137, Potassium 4.0, Chloride 107, Carbon Dioxide 24, Anion Gap 10.0, BUN 16, Creatinine 0.60, Estimated Creat Clear 234, Estimated GFR 115, Est GFR ( Amer) 139, Glucose 100, Calcium 8.4, Vancomycin Trough 16.0 H Medical History: Medical History (Updated 09/26/23 @ 09:47 by Julio Weber MD) Hepatitis C Assessment and Plan Assessment and plan all Dx Assessment and Plan for all problems:: BASED ON PATIENT FACTORS AND VANCOMYCIN TROUGH LEVEL OF 16.0, RECOMMEND CONTINUING CURRENT DOSE OF VANCOMYCIN AT 1,750MG EVERY 8 HOURS. -KEN DISLA, ODALYSD
--- NOTE | 2023-09-27 08:25 | EXP.ANES.II ---
[facility] Anesthesia Record Part II Anesthesia Record Part II Discharge Time: 07:25 Destination: Medical Surgical Department PACU nurse assessment reviewed?: Yes Patient Condition:: Good Anesthesia Complications:: None Swallowing reflex intact?: Yes Airway Patency: Patent Cyanosis?: No Blood Pressure: 130/89 SaO2: 97 Respiratory Rate: 18 Pulse Rate: 70 Temperature: 97.7 F Mental Status: Alert & Oriented Pain level:: 4 Nausea and/or vomitting:: None Intake, IV Amount: 0 Hydration: Adequate
[2023-09-27] MEDS: VANCOMYCIN/WATER FOR INJ (PEG) 1.5 GM/300 ML PIGGYBACK IV ×2 (10:12→15:27)
[2023-09-27 11:00] LABS: Vancomycin,Peak 15.4 ug/ml (11-39)
[2023-09-27] MEDS: SODIUM CHLORIDE 0.9% 25ML BAG 25 ML IV (13:43)
[2023-09-27] MEDS: PROMETHAZINE HCL 25MG/ML 1ML VIAL 12.5 MG IV (13:43)
[2023-09-27] MEDS: CEFTRIAXONE 1 GM 1 GM in 0.9 % SODIUM CHLORIDE 50 ML IV (14:14)
--- NOTE | 2023-09-27 15:49 | PC.NURSE ---
Patient reports nausea after surgery, zofran and phenergan ordered. Zofran able to relieve symptoms initially but then needed phenergan for later episodes of emesis. Patient states this happens anytime she has anaesthesia. VS stable and patient remained on room air. Dressing clean dry and intact. Patient able to ambulate to bathroom twice. IV antibiotics given.
--- NOTE | 2023-09-27 19:47 | P.PN_ITS ---
Subjective *Date: 09/27/23 *Time: 19:47 Interval history: Taken for I&D this morning. Tolerated well. Still little groggy after anesthesia on my evaluation. On room air. Pain stable. Afebrile Medical Exam Vital signs and Labs for Last 24 Hours: Vital Signs Temp Pulse Pulse Resp BP BP BP 09/27/23 18:37 09/27/23 17:10 09/27/23 15:32 98.6 F 68 16 109/61 L 09/27/23 15:20 09/27/23 13:55 98.4 F 68 22 121/66 09/27/23 13:00 09/27/23 12:55 98.5 F 90 22 123/74 09/27/23 11:55 98.2 F 67 20 107/59 L 09/27/23 11:00 09/27/23 10:55 97.9 F 67 20 116/61 09/27/23 09:55 98.0 F 61 18 102/72 L 09/27/23 09:25 98.3 F 58 L 18 112/66 09/27/23 09:25 09/27/23 08:55 98.3 F 68 18 100/54 L 09/27/23 08:26 18 09/27/23 08:25 98.1 F 63 18 108/64 L 09/27/23 08:10 97.9 F 68 18 113/71 09/27/23 07:55 97.7 F 73 20 122/76 09/27/23 07:40 09/27/23 07:40 97.7 F 93 H 20 133/90 09/27/23 07:25 97.8 F 75 20 125/73 09/27/23 07:25 70 18 130/89 09/27/23 07:15 75 18 139/98 H 09/27/23 07:05 69 18 127/82 09/27/23 06:56 97.2 F L 69 24 113/58 L 09/27/23 06:55 70 18 116/74 09/27/23 06:45 67 18 121/86 09/27/23 06:35 97.2 F L 70 18 111/61 09/27/23 05:00 09/27/23 04:00 98 F 72 16 113/69 09/27/23 02:50 09/27/23 01:00 09/26/23 23:00 09/26/23 21:00 09/26/23 20:00 09/26/23 20:00 98.1 F 94 H 16 136/70 Pulse Ox O2 Del Method 09/27/23 18:37 Room Air 09/27/23 17:10 Room Air 09/27/23 15:32 98 09/27/23 15:20 Room Air 09/27/23 13:55 97 Room Air 09/27/23 13:00 Room Air 09/27/23 12:55 99 Room Air 09/27/23 11:55 97 Room Air 09/27/23 11:00 Room Air 09/27/23 10:55 98 Room Air 09/27/23 09:55 96 Room Air 09/27/23 09:25 97 Room Air 09/27/23 09:25 Room Air 09/27/23 08:55 96 Room Air 09/27/23 08:26 09/27/23 08:25 98 Room Air 09/27/23 08:10 95 Room Air 09/27/23 07:55 96 Room Air 09/27/23 07:40 Room Air 09/27/23 07:40 98 Room Air 09/27/23 07:25 98 Room Air 09/27/23 07:25 97 Room Air 09/27/23 07:15 96 Room Air 09/27/23 07:05 97 Room Air 09/27/23 06:56 09/27/23 06:55 97 Room Air 09/27/23 06:45 97 Room Air 09/27/23 06:35 96 Room Air 09/27/23 05:00 Room Air 09/27/23 04:00 96 Room Air 09/27/23 02:50 Room Air 09/27/23 01:00 Room Air 09/26/23 23:00 Room Air 09/26/23 21:00 Room Air 09/26/23 20:00 Room Air 09/26/23 20:00 92 L Room Air Intake and Output 09/27/23 09/27/23 09/27/23 07:59 15:59 23:59 Intake Total 700 / 0 240 / 2060 1120 / 2060 Output Total 300 / 300 Balance 700 / 1760 -60 / 1760 1120 / 1760 Intake: Intake, Oral Amount 240 / 710 470 / 710 Intake, Total IV Amount 700 / 1350 0 / 1350 650 / 1350 Ceftriaxone 1 gm 1 gm In 0.9 % 50 / 50 Sodium Chloride 50 ml @ 100 mls /hr IV Q24H [facility] Rx#:[id number] Vancomycin/Water For Inj (Peg) 600 / 1200 600 / 1200 1.5 gm In 300 ml @ 150 mls/hr IV Q8H [facility] Rx#:[id number] Output: Output, Urine Amount 300 / 300 Other: Number of Voids 0 Weight 111.266 kg 111.266 kg Patient Weight 09/27/23 23:59 Weight 111.266 kg Laboratory Results - last 24 hr 09/27/23 05:34: Urine HCG, Qual Negative 09/27/23 05:36: WBC 3.6 L, RBC 4.01 L, Hgb 11.9 L, Hct 37.0, MCV 92.2, MCH 29.6, MCHC 32.1, RDW 14.0, Plt Count 208, MPV 8.7, Neut % (Auto) 44.5, Lymph % (Auto) 40.6, [place] % (Auto) 7.2, Eos % (Auto) 6.7, Baso % (Auto) 1.0, Neut # (Auto) 1.6 L, Lymph # (Auto) 1.5, [place] # (Auto) 0.3, Eos # (Auto) 0.2, Baso # (Auto) 0.0, Sodium 137, Potassium 4.0, Chloride 107, Carbon Dioxide 24, Anion Gap 10.0, BUN 16, Creatinine 0.60, Estimated Creat Clear 234, Estimated GFR 115, Est GFR ( Amer) 139, Glucose 100, Calcium 8.4, Vancomycin Trough 16.0 H 09/27/23 10:34: Vancomycin Peak 15.4 I & O for Labs for Last 24 Hours: Intake & Output 09/24/23 09/25/23 09/26/23 09/27/23 23:59 23:59 23:59 23:59 Intake Total 980 / 1580 2059 / 2059 Output Total 0 / 0 300 / 300 Balance 980 / 1580 1760 / 1760 Weight 113.568 kg 117.208 kg 111.266 kg Constitutional: Present no acute distress and obese Head: Present atraumatic and normocephalic Neck: Present normal inspection Respiratory: Present normal respiratory effort; Absent rhonchi, wheezes or crackles Cardiac: Present Reg Rate and Rhythm GI: Present soft and normal bowel sounds; Absent distention or tenderness Extremities: Present full ROM Comment:: Left upper thigh with postsurgical bandage. Clean, dry, intact Skin: Present intact; Absent erythema Neuro: Present Grossly Intact, alert, awake, oriented x 3 and moves all extremities Assessment and Plan *Assessment and plan (1) Cellulitis: Status: Acute Qualifiers: Site of cellulitis: extremity Site of cellulitis of extremity: lower extremity Laterality: left Qualified Code(s): L03.116 - Cellulitis of left lower limb Category: Medical Code(s): L03.90 - Cellulitis, unspecified (2) Abscess of skin or subcutaneous tissue: Status: Acute Qualifiers: Laterality: left Site of cutaneous abscess: extremity Site of cutaneous abscess of extremity: lower extremity Qualified Code(s): L02.416 - Cutaneous abscess of left lower limb Category: Medical Code(s): L02.91 - Cutaneous abscess, unspecified Plan Patient is a 33-year-old female who presents to the hospital due to left lower extremity abscess on the medial aspect of the left thigh. According to patient she presented to the hospital around 2 days ago, she had incision and drainage performed in the emergency department and was discharged on oral antibiotics however for the past 2 days her redness has gotten worse and she is being feeling more pain at the site so she decided to come back to the hospital. Patient mentions she was discharged on oral doxycycline. Patient also mentions she had fever otherwise denied chest pain shortness of breath nausea vomiting diarrhea constipation dysuria. Taken for I&D today, continues to require inpatient management pending response to IV antibiotics. Surgery assisting with care. Problems addressed as follows: Left lower extremity cellulitis Skin abscess -Surgery assisting with care, discussed case this morning. Tolerated I&D well. Continue IV Rocephin and vancomycin -Dressing changes daily, wet-to-dry -Tylenol 650 mg p.o. as needed every 6 hours for moderate pain, morphine 2 mg every 4 hours as needed for severe pain. Monitor for toxicity -White cell count 3.6, kidney function normal BUN 16, creatinine 0.6. Repeat CMP and CBC ordered for the morning DVT prophylaxis-Lovenox Full code Regular diet
[2023-09-27] MEDS: MORPHINE 2MG/ML SYRINGE 1 MG IV (20:30)
[2023-09-28] VITALS: BP 117/63; PULSE 78; RESP 18; TEMP 36.6; O2SAT 99
[2023-09-28] MEDS: VANCOMYCIN/WATER FOR INJ (PEG) 1.5 GM/300 ML PIGGYBACK IV ×2 (00:16→09:27)
[2023-09-28] MEDS: HEPARIN SODIUM 5,000 UNIT/ML VIAL 5000 UNIT SQ ×2 (00:16→09:27)
[2023-09-28 04:00] VITALS: BP 103/64; PULSE 80; RESP 18; TEMP 36.8; O2SAT 95; BMI 36.8
[2023-09-28] MEDS: MORPHINE 2MG/ML SYRINGE 1 MG IV ×2 (05:28→11:23)
--- NOTE | 2023-09-28 05:38 | PC.NURSE ---
Pt is alert and oriented. IV in right upper arm infiltrated, ultrasound IV to left upper arm placed. Pt has complained of pain 2 times, treated per mar. Dressing changed 1 time this shift due to pt getting urine on dressing. Pt independent in room. Call light in reach.
[2023-09-28 07:57] VITALS: BP 130/75; PULSE 81; RESP 18; TEMP 36.7; O2SAT 96
--- NOTE | 2023-09-28 07:59 | P.PN_ITS ---
Subjective Patient reports: no new complaints Exam Data for Last 24 hours Vital signs and Labs for Last 24 Hours: Temp Pulse Resp BP Pulse Ox O2 Del Method 98.2 F 80 18 103/64 L 95 Room Air 09/28/23 04:00 09/28/23 04:00 09/28/23 04:00 09/28/23 04:00 09/28/23 04:00 09/28/23 06:34 Laboratory Results - last 24 hr 09/27/23 10:34: Vancomycin Peak 15.4 I & O for Last 24 hours: Intake & Output 09/25/23 09/26/23 09/27/23 09/28/23 11:59 11:59 11:59 11:59 Intake Total 500 / 500 1180 / 1180 1660 / 1660 Output Total 0 / 0 300 / 300 0 / 0 Balance 500 / 500 880 / 880 1660 / 1660 Weight 258 lb 6.4 oz 245 lb 4.8 oz 248 lb 6 oz Microbiology Reports for the Last 24 Hours: Microbiology 09/27/23 06:20 Groin - Abscess Surgical Biopsy Culture - Preliminary NO GROWTH AFTER 24 HOURS Constitutional Constitutional: no acute distress *Routine Respiratory Exam Respiratory: Absent respiratory distress *Routine Cardiovascular Exam Cardiovascular: Absent tachycardia *Routine Skin Exam Comments: Dressing in place. No spreading cellulitis Progress Note: A&P Assessment and plan (1) Abscess of skin or subcutaneous tissue: Status: Acute Assessment and plan: Overall, doing well status post incision and drainage/debridement of necrotic le ft groin/thigh abscess. Dressing changes (2) Cellulitis: Status: Acute
--- NOTE | 2023-09-28 09:24 | EXP.DC.SUM ---
General Admission date:: 09/25/23 Discharge date: 09/28/23 HPI HPI HPI: Patient is a 33-year-old female who presents to the hospital due to left lower extremity abscess on the medial aspect of the left thigh. According to patient she presented to the hospital around 2 days ago, she had incision and drainage performed in the emergency department and was discharged on oral antibiotics however for the past 2 days her redness has gotten worse and she is being feeling more pain at the site so she decided to come back to the hospital. Patient mentions she was discharged on oral doxycycline. Patient also mentions she had fever otherwise denied chest pain shortness of breath nausea vomiting diarrhea constipation dysuria. Hospital Course Hospital Course Hospital Course: Patient is a 33-year-old female who presents to the hospital due to left lower extremity abscess on the medial aspect of the left thigh. According to patient she presented to the hospital around 2 days ago, she had incision and drainage performed in the emergency department and was discharged on oral antibiotics however for the past 2 days her redness has gotten worse and she is being feeling more pain at the site so she decided to come back to the hospital. Patient mentions she was discharged on oral doxycycline. Patient also mentions she had fever otherwise denied chest pain shortness of breath nausea vomiting diarrhea constipation dysuria. Taken for I&D on 09/26. Will continue packing daily. Transition to oral antibiotics. Stable to discharge home with close follow-up with surgery. Problems addressed as follows: Left lower extremity cellulitis Skin abscess -Surgery consulted, taken for I&D on 09/26. Initially treated with vancomycin and Rocephin. Overall doing well and seeing improvement. Will transition to Bactrim to complete 10-day course of antibiotics. Surgery recommends daily dressing change with dry packing. Patient unable to do this at home, will come in as an outpatient to do dressing changes daily. Sent home with hydrocodone to take prior to dressing changes. Afebrile on day of discharge. White cell count normal at 4.9. Kidney function electrolytes all normal. Stable for discharge home. Exam Data for Last 24 hours Vital signs and Labs for Last 24 Hours: Temp Pulse Resp BP Pulse Ox O2 Del Method 98.0 F 81 18 130/75 96 Room Air 09/28/23 07:57 09/28/23 07:57 09/28/23 07:57 09/28/23 07:57 09/28/23 07:57 09/28/23 07:57 Laboratory Results - last 24 hr 09/27/23 10:34: Vancomycin Peak 15.4 I & O for Last 24 hours: Intake & Output 09/25/23 09/26/23 09/27/23 09/28/23 23:59 23:59 23:59 23:59 Intake Total 980 / 1580 2060 / 2360 540 / 540 Output Total 0 / 0 300 / 300 0 / 0 Balance 980 / 1580 1760 / 2060 540 / 540 Weight 113.568 kg 117.208 kg 111.266 kg 112.661 kg Microbiology Reports for the Last 24 Hours: Microbiology 09/27/23 06:20 Groin - Abscess Surgical Biopsy Culture - Preliminary NO GROWTH AFTER 24 HOURS Constitutional Constitutional: no acute distress, obese and cooperative *Routine HEENT Exam Head: Present normocephalic Eye: Present EOMI and PERRL ENT: Present mucous membranes moist *Routine Neck Exam Neck: Present supple; Absent lymphadenopathy *Routine Respiratory Exam Respiratory: Present CTA bilaterally; Absent rhonchi, wheezes or crackles *Routine Cardiovascular Exam Cardiovascular: Present RRR *Routine Abdominal Exam Abdominal: Present soft and normoactive bowel sounds; Absent tenderness *Routine Rectal Exam Patient deferred: visual exam *Routine Exam External: Absent vulvar erythema *Routine Extremities Exam Extremities: Absent cyanosis, clubbing or edema Comments: Firm induration around surgical site left proximal thigh. Bandaging with serosanguineous drainage. Mild tenderness to palpation. Improved erythema *Routine Skin Exam Skin: Present warm and wounds; Absent rash Comments: Surgical wound left upper thigh *Routine Neurological Exam Neurological: Present alert, oriented X3 and moving all extremities; Absent altered mental status Results Data Completed and Pending Labs on day of discharge: Labs from last 24 hours 09/27/23 10:34 Vancomycin Peak 15.4 Preliminary micro results at discharge 09/27/23 06:20 Surgical Biopsy Culture - Preliminary Groin - Abscess NO GROWTH AFTER 24 HOURS DS: Diagnosis Discharge Diagnosis (1) Abscess of skin or subcutaneous tissue: Status: Acute Code(s): L02.91 - Cutaneous abscess, unspecified Qualifiers: Laterality: left Site of cutaneous abscess: extremity Site of cutaneous abscess of extremity: lower extremity Qualified Code(s): L02.416 - Cutaneous abscess of left lower limb (2) Cellulitis: Status: Acute Code(s): L03.90 - Cellulitis, unspecified Qualifiers: Laterality: left Site of cellulitis: extremity Site of cellulitis of extremity: lower extremity Qualified Code(s): L03.116 - Cellulitis of left lower limb Meds Home Medications and Allergies Home Medications Medication Instructions Recorded Confirmed Type hydrocodone 5 mg-acetaminophen 325 1 tab PO QIDP PRN dressing changes 09/28/23 Rx mg tablet 3 days #12 tabs sulfamethoxazole 800 1 tab PO BID 6 days #12 tabs 09/28/23 Rx mg-trimethoprim 160 mg tablet (Bactrim DS) New Prescriptions to Start Prescriptions: hydrocodone-acetaminophen Anselmo Don sulfamethoxazole-trimethoprim [Bactrim DS] Anselmo Don Allergies Allergy/AdvReac Type Severity Reaction Status Date / Time No Known Allergies Allergy Verified 09/23/23 18:08 Discharge Plan Disposition Patient Disposition: Home, Self-Care Condition: Fair Discharge Order Discharge Orders: Discharge Order (Routine); Ordered 09/28/23 Ordered By: Anselmo Don Follow up Plan Follow up with: Kelly Warner APRN [Primary Care Provider] - 10/07/23 12:00 pm Julio Weber MD [Staff Physician] - 10/06/23 2:45 pm Prescriptions/Medication Reconciliation: New sulfamethoxazole-trimethoprim [Bactrim DS] 800-160 mg tablet 1 tab PO BID 6 Days Qty: 12 0RF hydrocodone-acetaminophen 5-325 mg tablet 1 tab PO QIDP PRN (Reason: dressing changes) 3 Days Qty: 12 0RF Discontinued doxycycline hyclate 100 mg capsule 100 mg PO BID Problem Reconciliation Problems Reviewed?: Yes Patient Discharge Instructions ACTIVITY: Continue current activity DIET: continue same diet Stand Alone Forms: [facility] Work Release Patient Instructions: DI for Cellulitis -- Adult, DI for Incision and Drainage of a Skin Abscess, DI for Surgical Site Infection, DI for Skin Abscess Providers Primary Care Provider: Kelly Warner Admit Provider: Vega Villeda Attending Provider: Vega Villeda
[2023-09-28 10:48] LABS: Basophils # 0.1 K/mm3 (0-0.2); Basophils % 1.2 % (0.1-2.0); Eosinophils # 0.1 K/mm3 (0.0-0.4); Eosinophils % 2.7 % (0.1-12.0); Hematocrit 37.8 % (37.0-47.0); Hemoglobin 12.1 g/dL (12.2-16.2); Lymphocytes # 1.5 K/mm3 (0.7-4.5); Lymphocytes % 30.3 % (10-50); Mean Corpuscular Hemoglobin 29.6 pg (27.0-31.2); Mean Corpuscular Volume 92.5 fl (81-99); Monocytes # 0.3 K/mm3 (0.1-1.0); Monocytes % 6.5 % (1.7-9.3); Neutrophils # 2.9 K/mm3 (1.8-7.8); Neutrophils % 59.3 % (37.0-80.0); Platelet Count 222 K/mm3 (142-424); Red Blood Count 4.08 M/mm3 (4.20-5.40); Red Cell Distribution Width 14.2 % (11.5-17.5); White Blood Count 4.9 K/mm3 (4.8-10.8)
[2023-09-28 10:54] LABS: Chloride 105 mmol/L (98-107); Potassium 3.9 mmoL/L (3.5-5.1); Sodium 137 mmol/L (136-145)
[2023-09-28 10:56] LABS: Blood Urea Nitrogen 10 mg/dl (7-17); Creatinine Clearance Estimated 237 mL/min (50-200); Estimated Glomerular Filt Rate 115 ml/min (>60); GFR (African American) 139 ML/MIN (>60)
[2023-09-28 10:57] LABS: Alanine Aminotransferase 79 U/L (12-78); Albumin Level 3.6 g/dl (3.5-5.0); Albumin/Globulin Ratio 1.1 (1.1-1.8); Alkaline Phosphatase 87 U/L (38-126); Anion Gap 7.9 mEq/L (5-15); Aspartate Amino Transferase 72 U/L (14-36); Bilirubin,Total 0.4 mg/dl (0.2-1.3); Calcium 8.6 mg/dl (8.4-10.2); Carbon Dioxide 28 mmol/L (22.0-30.0); Globulin 3.2 g/dL (1.3-3.2); Glucose 75 mg/dl (74-100); Magnesium 1.8 mg/dl (1.6-2.3); Total Protein,Serum 6.8 g/dl (6.3-8.2)
[2023-09-28] MEDS: MORPHINE 4MG/ML SYRINGE 4 MG IV (12:28)
--- NOTE | 2023-09-28 13:12 | PC.NURSE ---
dressing to left groin packed with dry kerlix, 4x4, and tegaderm.
--- NOTE | 2023-09-28 13:21 | HMH.PHAINT1 ---
Pharmacy Intervention Comments: Discharge counseling was provided to patient for the following new medications: -hydrocodone-acetaminophen 5-325mg one tablet four times a day as needed for dressing changes -bactrim 800-160mg twice daily for six days Discussed possible side effects of GI upset, constipation, and taking other medications that contain acetaminophen. Patient verbalized understanding with no questions about the medications.
--- NOTE | 2023-09-29 13:53 | CARE MANAGER ---
Contacted patient related to hospital discharge. She states that she is doing well. She is aware of follow up appointments and has medications. She was very complimentary of her night nurse, Maryanne, and said she had a wonderful beside manner. She denies questions or concerns at this time. LEILA Fried
== END 2023-09-28 14:36 | disposition home or self-care (01) | DRG 603 ==
LOC: ER 15:59 → 2ND 17:20
PROVIDERS: Internal Medicine Adolescent Medicine; Surgery; Admitting Provider Internal Medicine; Emergency Provider Emergency Medicine; PCP Nurse Practitioner Family; Visit Provider Internal Medicine
PROC: 0J9M0ZZ Drainage of Left Upper Leg Subcutaneous Tissue and Fascia, Open Approach (ICD-10-PCS; principal; 2023-09-27 06:00)
DX: L02.416 Cutaneous abscess of left lower limb (principal); L03.116 Cellulitis of left lower limb
CPT/HCPCS: 27301; 36415; 80048; 80053; 80202; 81025; 83735; 85025; 87040; 87070; 87205; 96374; 99285; J0696; J2405; J3370

== ENCOUNTER 2023-09-29 12:35 | Outpatient (CLI) | payer MEDICAID, SELFPAY | END 2023-09-29 13:21 | disposition home or self-care (01) | LOC: INF 12:35 | PROVIDERS: PCP Nurse Practitioner Family; Visit Provider Internal Medicine Adolescent Medicine | DX: L03.116 Cellulitis of left lower limb (principal); Z48.01 Encounter for change or removal of surgical wound dressing | CPT/HCPCS: G0463 ==

== ENCOUNTER 2023-09-30 13:22 | Outpatient (CLI) | payer MEDICAID, SELFPAY | END 2023-09-30 13:45 | disposition home or self-care (01) | LOC: INF 13:22 | PROVIDERS: PCP Nurse Practitioner Family; Visit Provider Internal Medicine Adolescent Medicine | DX: L02.416 Cutaneous abscess of left lower limb (principal); Z48.01 Encounter for change or removal of surgical wound dressing | CPT/HCPCS: G0463 ==

== ENCOUNTER 2023-10-01 12:01 | Outpatient (CLI) | payer MEDICAID, SELFPAY | END 2023-10-01 12:20 | disposition home or self-care (01) | LOC: INF 12:02 | PROVIDERS: PCP Nurse Practitioner Family; Visit Provider Internal Medicine Adolescent Medicine | DX: L02.416 Cutaneous abscess of left lower limb (principal); Z48.01 Encounter for change or removal of surgical wound dressing | CPT/HCPCS: G0463 ==

== ENCOUNTER 2023-10-02 11:44 | Outpatient (CLI) | payer MEDICAID, SELFPAY | END 2023-10-02 23:59 | PROVIDERS: PCP Nurse Practitioner Family; Visit Provider Internal Medicine Adolescent Medicine | DX: L02.416 Cutaneous abscess of left lower limb (principal); Z48.01 Encounter for change or removal of surgical wound dressing | CPT/HCPCS: G0463 ==

== ENCOUNTER 2023-10-03 12:03 | Outpatient (CLI) | payer MEDICAID, SELFPAY ==
[2023-10-03 12:06] VITALS: BP 137/84; PULSE 80; RESP 18; O2SAT 99
[2023-10-03 12:30] VITALS: BP 137/84; PULSE 80; RESP 18; O2SAT 99
== END 2023-10-03 12:30 | disposition home or self-care (01) ==
LOC: INF 12:04
PROVIDERS: PCP Nurse Practitioner Family; Visit Provider Internal Medicine Adolescent Medicine
DX: L02.416 Cutaneous abscess of left lower limb (principal); Z48.01 Encounter for change or removal of surgical wound dressing
CPT/HCPCS: G0463

== ENCOUNTER 2023-10-04 11:15 | Outpatient (CLI) | payer MEDICAID, SELFPAY | END 2023-10-04 11:25 | disposition home or self-care (01) | LOC: INF 11:16 | PROVIDERS: PCP Nurse Practitioner Family; Visit Provider Internal Medicine Adolescent Medicine | DX: L02.416 Cutaneous abscess of left lower limb (principal); Z48.01 Encounter for change or removal of surgical wound dressing | CPT/HCPCS: G0463 ==

== ENCOUNTER 2023-10-05 12:47 | Outpatient (CLI) | payer MEDICAID, SELFPAY | END 2023-10-05 13:12 | disposition home or self-care (01) | LOC: INF 12:48 | PROVIDERS: PCP Nurse Practitioner Family; Visit Provider Internal Medicine Adolescent Medicine | DX: L02.416 Cutaneous abscess of left lower limb (principal); L03.90 Cellulitis, unspecified; Z48.01 Encounter for change or removal of surgical wound dressing | CPT/HCPCS: G0463 ==

== ENCOUNTER 2023-10-06 07:54 | Emergency (ER) | payer MEDICAID, SELFPAY ==
[2023-10-06 07:56] VITALS: BP 137/71; PULSE 99; RESP 18; TEMP 36.8; O2SAT 99; BMI 39.1
--- NOTE | 2023-10-06 08:30 | PC.NURSE ---
pt placed in gown for MD assessment
--- NOTE | 2023-10-06 08:31 | CA_ITS ---
FINAL REPORT TECHNIQUE: Graded compression, spectral analysis and ultrasound images of the venous system of the upper extremity were obtained. CLINICAL HISTORY: limb tenderness with swelling after IV FINDINGS: The jugular vein, subclavian vein, axillary vein, brachial vein, cephalic vein and basilic venous system are fully compressible and demonstrate no evidence of thrombosis. IMPRESSION: No evidence of thrombosis of the venous system of the left upper extremity. Reviewed, Interpreted and Dictated by Bam Zelaya MD Transcribed by Kaila Jacobs Authenticated and . [facility]
--- NOTE | 2023-10-06 08:38 | ED_ITS ---
Discharge Plan Disposition Patient Disposition: Home, Self-Care Condition: Good Prescriptions Prescriptions: New naproxen 500 mg tablet 500 mg PO BID PRN (Reason: pain) Qty: 20 0RF No Action sulfamethoxazole-trimethoprim [Bactrim DS] 800-160 mg tablet 1 tab PO BID 6 Days Qty: 12 0RF hydrocodone-acetaminophen 5-325 mg tablet 1 tab PO QIDP PRN (Reason: dressing changes) 3 Days Qty: 12 0RF Referrals Follow up/Referrals: Kelly Warner APRN [Primary Care Provider] - See instructions Activity Restrictions/Add. Instructions Additional Instructions/Restrictions: You were evaluated in the emergency department. Please hand picker your prescription for naproxen and take to reduce inflammation. Ice the area for pain. Follow-up with your primary care provider for reassessment. Return to the emergency department for new or worsening symptoms. Clinical Impressions Clinical Impression: Superficial thrombophlebitis of left upper extremity Instructions Patient Instructions: DI for Superficial Thrombophlebitis Discharge ED Provider: Kelly Shafer General Adult HPI General Chief complaint: Extremity Problem,Nontraumatic Stated complaint: redness and swelling underneath L arm spreading Time Seen by Provider: 10/06/23 08:04 Mode of Arrival: Ambulatory Source of Information: Patient Limitations: No Limitations Description of Symptoms (Recalled from ER Triage Doc. by RN): PT C/O LEFT ARM PAIN, REDNESS AND SWELLING. PT HAD RECENT US IV PLACED FOR SURGERY. History of Present Illness HPI narrative: This patient is a 33-year-old female with history of abscess on the medial left thigh status post incision and drainage on oral antibiotics presenting with concern for a palpable red area in her left arm that is tender and swollen. She notes that it has been there since she had her IV placed for her procedure. There is a linear area of redness and swelling that extends from her AC down to her forearm, and she states that it is tender to palpation and painful if she moves her arm. No other concerns noted, such as fevers, chills, chest pain, shortness of breath, or other issues. Related Data Previous Rx's Medication Instructions Recorded hydrocodone 5 mg-acetaminophen 325 1 tab PO QIDP PRN dressing changes 09/28/23 mg tablet 3 days #12 tabs sulfamethoxazole 800 1 tab PO BID 6 days #12 tabs 09/28/23 mg-trimethoprim 160 mg tablet (Bactrim DS) naproxen 500 mg tablet 500 mg PO BID PRN pain #20 tabs 10/06/23 Allergies Allergy/AdvReac Type Severity Reaction Status Date / Time No Known Allergies Allergy Verified 09/23/23 18:08 [facility] Disclaimer: The information contained in this section may have been updated after the patient was seen, as this information can be updated by other users. Medical History Abscess of skin or subcutaneous tissue Hepatitis C Surgical History History of tonsillectomy History of appendectomy History of section History of cholecystectomy Family History Father Lung cancer Mother Family history of stroke Social History Smoking Status: Current every day smoker alcohol intake: current substance use type: denies use current occupational status: employed Travel in the last 8 weeks: None ROS Obtained: Yes All systems reviewed & no additional complaints except as documented Physical Exam General General appearance: alert and in no apparent distress Head Head exam: atraumatic and normocephalic Eye Eye exam: Present normal appearance, PERRL and EOMI ENT ENT exam: Present normal exam, normal oropharynx, mucous membranes moist and normal external ear exam Neck Neck exam: Present normal inspection, full ROM and trachea midline; Absent tenderness Chest Chest inspection: Present normal inspection and symmetric chest wall rise; Absent tenderness Respiratory Respiratory exam: Present normal lung sounds bilaterally; Absent respiratory distress, wheezes, stridor or accessory muscle use Cardiovascular Cardiovascular exam: Present regular rate and normal rhythm Abdominal Exam Abdominal exam: Present soft; Absent distention, tenderness or guarding Extremities Exam Extremities exam: Present full ROM and normal capillary refill; Absent tenderness or edema Expanded Upper Extremity Exam Left: L/R Arms Bottom View: 2 1. Palpable linear erythematous cord that is tender to palpation. No significant red streaking away from this area. No fluctuance. No significant limb swelling. Neurovascularly intact distally. Back Exam Back exam: Present normal inspection and full ROM; Absent tenderness Neurological Exam Neurological exam: Present alert, oriented X3, CN II-XII intact and normal gait; Absent motor sensory deficit Psychiatric Psychiatric exam: Present normal affect and normal mood Skin Skin exam: Present warm and dry Medical Decision Making Medical Records Medical records reviewed: Yes I reviewed the patient's medical records. [place] Inquiry Pt receiving controlled substance: No Vital Signs: 10/06/23 07:56 10/06/23 09:14 10/06/23 09:47 Temperature 98.3 F 98.3 F Temperature Source Oral Oral Pulse Rate 86 67 Pulse Rate [Radial] 99 H Respiratory Rate 18 18 Blood Pressure 121/83 134/89 Blood Pressure [Right Arm] 137/71 Blood Pressure Mean [Right Arm] 93 Blood Pressure Source Automatic Cuff Blood Pressure Source [Right Arm] Automatic Cuff Blood Pressure Position Sitting Blood Pressure Position [Right Arm] Sitting 02 Sat by Pulse Oximetry 99 100 Oxygen Delivery Method Room Air Room Air Room Air Lab Data Lab results reviewed: Yes I reviewed the patient's lab results. Orders (Tests/Meds): ED MEDICATIONS Discontinued Medications Generic Name Dose Route Start Last Admin Trade Name Freq PRN Reason Stop Dose Admin Naproxen 500 mg 10/06/23 08:42 10/06/23 09:17 Naproxen 500mg Tablet PO 10/06/23 08:43 500 mg ONCE ONE Administration ORDERS Category Date Time Status CA venous doppler UE LT Stat Y 10/06/23 08:31 Completed Medical Decision Narrative: In summary, this patient is a 33-year-old female presenting to the Emergency Department for evaluation of redness and pain to the left forearm after IV placement. Differential diagnoses considered include but are not limited to superficial thrombophlebitis, DVT, cellulitis. Ruling out the most morbid conditions drove assessment. On exam, the patient has and a linear palpable cord that is erythematous. Based on clinical diagnosis, I feel she mostly has a superficial thrombophlebitis. Low concern for cellulitis, abscess, or DVT based on exam, but DVT ultrasound of the left upper extremity was ordered to exclude DVT. Patient was given oral naproxen for symptomatic improvement. I independently interpreted DVT US prior to the radiologist read and noted no obvious DVT. Please see their read for final interpretation. On reassessment, patient remains resting comfortably with reassuring vital signs. At this time, I feel she likely has superficial thrombophlebitis. I feel she is appropriate for discharge with NSAIDs for treatment. She was given prescription for naproxen. Strict return precautions were given, and the patient was discharged in stable condition with instructions for close follow- up. Critical Care Critical Care Time Critical Care Time: No
--- NOTE | 2023-10-06 08:55 | PC.NURSE ---
DOPPLER AT BEDSIDE
--- NOTE | 2023-10-06 09:10 | PC.NURSE ---
administrative tech gave prelim report of no thrombus, maybe thrombophlebitis. Notified Dr. Shafer of this
[2023-10-06 09:14] VITALS: BP 121/83; PULSE 86; O2SAT 100
[2023-10-06] MEDS: NAPROXEN 500MG TABLET 500 MG PO (09:17)
--- NOTE | 2023-10-06 09:46 | PC.NURSE ---
DR TORRES AT BEDSIDE
--- NOTE | 2023-10-06 09:46 | PC.NURSE ---
Dr. Shafer at BS to update pt on results and POC
[2023-10-06 09:47] VITALS: BP 134/89; PULSE 67; RESP 18; TEMP 36.8; O2SAT 97
== END 2023-10-06 09:51 | disposition home or self-care (01) ==
PROVIDERS: Emergency Provider Emergency Medicine; PCP Nurse Practitioner Family
DX: I80.8 Phlebitis and thrombophlebitis of other sites (principal); F17.210 Nicotine dependence, cigarettes, uncomplicated
CPT/HCPCS: 93971; 99284

== ENCOUNTER 2023-10-06 14:54 | Outpatient (CLI) | payer MEDICAID, SELFPAY | END 2023-10-06 15:24 | disposition home or self-care (01) | LOC: INF 14:55 | PROVIDERS: PCP Nurse Practitioner Family; Visit Provider Internal Medicine Adolescent Medicine | DX: L02.416 Cutaneous abscess of left lower limb (principal); Z48.01 Encounter for change or removal of surgical wound dressing | CPT/HCPCS: G0463 ==

== ENCOUNTER 2023-10-07 08:40 | Outpatient (CLI) | payer MEDICAID, SELFPAY | END 2023-10-07 23:59 | disposition home or self-care (01) | PROVIDERS: PCP Nurse Practitioner Family; Visit Provider Internal Medicine Adolescent Medicine | DX: L02.416 Cutaneous abscess of left lower limb (principal); Z48.01 Encounter for change or removal of surgical wound dressing | CPT/HCPCS: G0463 ==

== ENCOUNTER 2023-12-21 17:29 | Emergency (ER) | payer MEDICAID, SELFPAY ==
[2023-12-21 17:30] VITALS: BP 104/71; PULSE 87; RESP 18; TEMP 36.4; O2SAT 99; BMI 36.9
--- NOTE | 2023-12-21 18:08 | ED_ITS ---
Discharge Plan Disposition Patient Disposition: Home, Self-Care Condition: Good Prescriptions Prescriptions: New methylprednisolone 4 mg Tablets,Dose Pack 4 mg PO DIRECTED 6 Days Qty: 21 0RF Rx Instructions: Take 1 pack as directed for 6 days Referrals Follow up/Referrals: Seth Whitmore PA [Primary Care Provider] - See instructions Discharge ED Provider: Anselmo Green [facility] [place] HPI General Stated complaint: LT hip pain, numbness in LT leg Mode of Arrival: Ambulatory Source of Information: Patient Limitations: No Limitations Time Seen by Provider: 12/21/23 18:08 Description of Symptoms (Recalled from Triage Doc. by RN): Pt's symptoms are pain in left butt cheek that runs down left leg to calf. HEENT Symptoms (Recalled from RN notes): No Resp Symptoms (Recalled from RN notes): No Skin Symptoms (Recalled from RN notes): No MS Symptoms (Recalled from RN notes): Yes Functional Status (Recalled from RN notes): n/a History of Present Illness Provider Complaint: She states that at around 3:00 pm today she step down off of a step and began having left lower back pain that radiates down her left leg. She has had symptoms like this before. She denies any recent fall or trauma. She denies any urinary symptoms. Related Data Previous Rx's Medication Instructions Recorded methylprednisolone 4 mg tablets in 4 mg PO DIRECTED 6 days #21 tabs 12/21/23 a dose pack Allergies Allergy/AdvReac Type Severity Reaction Status Date / Time No Known Allergies Allergy Verified 12/21/23 17:55 Worker's Comp Is this a Worker's Comp case?: No [facility] Disclaimer: The information contained in this section may have been updated after the patient was seen, as this information can be updated by other users. Medical History Abscess of skin or subcutaneous tissue Hepatitis C Surgical History History of tonsillectomy History of appendectomy History of section History of cholecystectomy Family History Father Lung cancer Mother Family history of stroke Social History Smoking Status: Current every day smoker alcohol intake: current substance use type: denies use current occupational status: employed Travel in the last 8 weeks: None ROS Obtained: Yes All systems reviewed & no additional complaints except as documented Constitutional Constitutional: Denies chills and Denies fever(s) Eyes Eyes: Denies eye discharge ENT Ears, Nose, Mouth, and Throat: Denies dizziness, Denies otalgia, Denies neck pain and Denies sore throat Cardiovascular Cardiovascular: Denies chest pain Respiratory Respiratory: Denies shortness of breath, Denies chest congestion, Denies cough, Denies stridor and Denies wheezing Gastrointestinal Gastrointestingal: Denies nausea or vomiting Musculoskeletal Musculoskeletal: Reports back pain and Denies neck pain Integumentary/Breasts Skin/Breast: Denies rash Neurologic Neurologic: Reports as per HPI, Denies dizziness, Denies paresthesias and Reports radicular pain Allergic/Immunologic Allergic/Immunologic: Denies wheezing Physical Exam General General appearance: alert and in no apparent distress Head Head exam: atraumatic, normocephalic and normal inspection Eye Eye exam: Present normal appearance, PERRL and EOMI ENT ENT exam: Present normal exam, normal oropharynx, mucous membranes moist, TM's normal bilaterally and normal external ear exam Neck Neck exam: Present normal inspection, full ROM and trachea midline; Absent meningismus or lymphadenopathy Chest Chest inspection: Present normal inspection and symmetric chest wall rise; Absent tenderness Respiratory Respiratory exam: Present normal lung sounds bilaterally; Absent respiratory distress Cardiovascular Cardiovascular exam: Present regular rate and normal rhythm; Absent JVD Abdominal Exam Abdominal exam: Present soft and normal bowel sounds; Absent distention, tenderness or guarding Extremities Exam Extremities exam: Present normal inspection, full ROM and normal capillary refill; Absent calf tenderness Back Exam Back exam: Present normal inspection; Absent tenderness Neurological Exam Neurological exam: Present alert, oriented X3, CN II-XII intact, normal gait and reflexes normal; Absent motor sensory deficit Expanded Neurological Exam Speech: Present fluid speech Cranial nerves: Normal: EOM function (II, III, IV, ), facial sensation (V), facial palsy (VII), gag reflex (IX), spinal accessory function (XI) and tongue deviation (XII) Cerebellar function: normal gait Motor strength - LUE: 5/5 Motor strength - RUE: 5/5 Motor strength - LLE: 5/5 Motor strength - RLE: 5/5 Upper motor neuron exam: Normal: sarahi neglect and sensory extinction Sensory exam upper extremity: Normal: light touch and 2 point discrimination Sensory exam lower extremity: Normal: light touch and 2 point discrimination DTR: 2+: biceps (L), biceps (R), patellar (L), patellar (R), Achilles tendon (L) and Achilles tendon (R) Spinal cord function: Absent saddle anesthesia Psychiatric Psychiatric exam: Present normal affect and normal mood Skin Skin exam: Present warm, dry, intact and normal color Lymphatic Lymphatic Findings: no adenopathy Medical Decision Making Medical Records Medical records reviewed: No I reviewed the patient's medical records. [place] Inquiry Pt receiving controlled substance: No Vital Signs: 12/21/23 17:30 Temperature 97.6 F Temperature Source Oral Pulse Rate [Right Radial] 87 Respiratory Rate 18 Blood Pressure [Right Arm] 104/71 L Blood Pressure Mean [Right Arm] 82 Blood Pressure Source [Right Arm] Automatic Cuff Blood Pressure Position [Right Arm] Sitting 02 Sat by Pulse Oximetry 99 Oxygen Delivery Method Room Air
[2023-12-21] MEDS: KETOROLAC 60MG/2ML VIAL 60 MG IM (18:21)
[2023-12-21] MEDS: DEXAMETHASONE 4MG/ML 1ML VIAL 8 MG IM (18:21)
[2023-12-21 18:49] VITALS: BP 104/71; PULSE 87; RESP 18; TEMP 36.4; O2SAT 99
== END 2023-12-21 18:49 | disposition home or self-care (01) ==
PROVIDERS: Emergency Provider Nurse Practitioner Family; PCP Physician Assistant
DX: M54.42 Lumbago with sciatica, left side (principal); F17.210 Nicotine dependence, cigarettes, uncomplicated
CPT/HCPCS: 96372; 99204; 99212; G0463; J1100; J1885

== ENCOUNTER 2024-03-17 17:00 | Outpatient (RCR) | payer MEDICAID, SELFPAY | END 2024-03-17 17:05 | disposition home or self-care (01) | LOC: PT 17:00 | PROVIDERS: Visit Provider Physician Assistant | DX: M54.42 Lumbago with sciatica, left side (principal); G89.29 Other chronic pain | CPT/HCPCS: 97014; 97110; 97140; 97163; G0283 ==